=== PATIENT | female | born 2000 | race Caucasian/White ===

== ENCOUNTER → 2018-03-21 | Outpatient (CLI) | payer BC, OTHER ==
--- NOTE | 2018-03-21 16:55 | RAD ---
Obstetrical ultrasound, 03/21/2018: HISTORY: check There is a single intrauterine fetus in a breech orientation. The biparietal diameter measures 4.5 cm compatible with a gestational age of 19-20 weeks. This corresponds well to the other measurements yielding an average gestational age of 19 weeks and 6 days and a sonographic EDC of 08/09/2017. Normal activity and heart motion were seen. The heart rate is 136 bpm. A four-chamber heart is evident. Fluid is evident in the bladder and stomach. The visualized portions of the kidneys and spine are unremarkable. A three-vessel umbilical cord is evident with a normal cord insertion site. The placenta lies posteriorly extending into the fundal region. A normal amount of amniotic fluid is evident. The GARY was calculated at 13.5. The cervical length was estimated at 4.5 cm. The maternal ovaries were not visualized. IMPRESSION: Single viable intrauterine fetus of approximately 20 weeks gestational age as described above. Electronically signed by: Mario Samuel MD (03/21/2018 4:52 PM) [facility]
== END | disposition home or self-care (01) ==
LOC: US 11:06
PROVIDERS: ATTEND Obstetrics & Gynecology
DX: O26.842 Uterine size-date discrepancy, second trimester (principal); Z3A.20 20 weeks gestation of pregnancy
CPT/HCPCS: 76805

== ENCOUNTER 2018-08-14 19:01 | Inpatient (IN) | payer BC, OTHER ==
[~2018-08-14] VITALS: Ht 165.1 cm; Wt 79.8 kg
[2018-08-14] MEDS ORDERED: CITRIC ACID/SODIUM CITRATE 30 ML SOLUTION. PO PRN (19:30)
[2018-08-14] MEDS ORDERED: fentaNYL PF VIAL 100 MCG/2 ML VIAL IV PRN ×2 (19:30)
[2018-08-14] MEDS ORDERED: 0.9 % SODIUM CHLORIDE 10 ML DISP.SYRIN. IV PRN (19:30)
[2018-08-14] MEDS ORDERED: DINOPROSTONE 10 MG SUPP.VAG VG ONE (19:30)
[2018-08-14] MEDS ORDERED: TERBUTALINE 1 MG/ML VIAL. SQ PRN (19:30)
[2018-08-14] MEDS ORDERED: OXYTOCIN 30 UNIT/500 ML PREMIX 500 ML IV PRN (19:30)
[2018-08-14] MEDS ORDERED: LIDOCAINE 1% PF 30 ML VIAL. INJ PRN (19:30)
[2018-08-14] MEDS ORDERED: ACETAMINOPHEN 325 MG TABLET. PO PRN (19:30)
[2018-08-14 19:32] VITALS: BP 132/83
[2018-08-14 19:59] LABS: BILIRUBIN,URINE NEGATIVE (NEG); CLARITY,URINE CLEAR; COLOR,URINE YELLOW; NITRITE,URINE NEGATIVE (NEG); PROTEIN,URINE NEGATIVE (NEG-TRACE)
[2018-08-14] MEDS: IV RINGERS,LACTATED 1000ML 1,000 ML IV SCH ×2 (20:04→20:38)
[2018-08-14 20:07] LABS: RBC,URINE 0 /HPF (0-2); SQUAMOUS EPITHELIAL CELL,UR MOD /LPF
[2018-08-14 20:08] LABS: BACTERIA,URINE FEW /HPF (0-FEW)
[2018-08-14 20:08] LABS: BASO % 0 % (0-3); EOS # 0.1 x10^3/uL (0.0-0.7); EOS % 1 % (0-3); HEMATOCRIT 33.5 % (36.0-47.0); HEMOGLOBIN 10.8 g/dL (12.0-15.5); LYMPH # 1.3 x10^3/uL (1.0-4.8); LYMPH % 14 % (24-48); MEAN CORPUSCULAR HEMOGLOBIN 26 pg (25-35); MEAN CORPUSCULAR HGB CONC 32 g/dL (31-37); MEAN CORPUSCULAR VOLUME 82 fL (79-100); MONO # 0.9 x10^3/uL (0.0-1.1); MONO % 9 % (0-9); NEUT # 7.1 x10^3uL (1.8-7.7); NEUT % 76 % (31-73); PLATELET COUNT 258 x10^3/uL (140-400); RED BLOOD COUNT 4.11 x10^6/uL (3.50-5.40); RED CELL DISTRIBUTION WIDTH 14.9 % (11.5-14.5); WHITE BLOOD COUNT 9.4 x10^3/uL (4.0-11.0)
[2018-08-15] MEDS: IV RINGERS,LACTATED 1000ML 1,000 ML IV SCH ×2 (08:26→16:02)
[2018-08-15] MEDS: OXYTOCIN 30 UNIT/500 ML PREMIX 500 ML IV PRN (08:44)
[2018-08-15] MEDS ORDERED: PNV1TABL25 PO (08:44)
--- NOTE | 2018-08-15 08:49 | RAD ---
EXAM: Obstetrics sonogram. HISTORY: Unknown presenting part. TECHNIQUE: Sonographic imaging of a gravid uterus was performed. COMPARISON: None. FINDINGS: There is a single intrauterine fetus in cephalic presentation with a heart rate of 130 bpm. There is normal body motion. The amniotic fluid volume is normal at 14.0 cm. There is a grade 2 left lateral placenta without evidence of placenta previa. The biparietal diameter is 9.48 cm, corresponding with 38 weeks and 5 days. The head circumference is 33.9 cm, corresponding with 39 weeks and 0 days. The abdominal circumference is 36.60 cm, corresponding with 40 weeks and 4 days. The femoral length is 7.73 cm, corresponding with 39 weeks and 4 days. The estimated gestational age patient combined ultrasound measurements is 39 weeks and 3 days and the estimated due date is 08/19/2018. The estimated weight is 3917 g. IMPRESSION: Single intrauterine fetus in cephalic presentation with a heart rate of 130 bpm and gestational age based on ultrasound measurements of 39 weeks and 3 days. Electronically signed by: Verónica Park MD (08/15/2018 8:46 AM) [id number]
--- NOTE | 2018-08-15 17:11 | PDOC1 ---
OB - History Hx of Present Care: Good Care Ultrasounds: Normal mid trimester US Obstetrical Complications: None Medical Complications: Other (depression) Past Family/Social History * Past Medical, Surgical, Family and Obstetric Histories reviewed from chart. Rubella: Immune RPR/VDRL: Negative GBS Status: Negative HBsAG: Negative OB - Chief Complaint & HPI Date of Admission: Date of Admission: Aug 14, 2018 at 19:01 Chief Complaint/History : 1 Para: 0 EGA: 40 Reason for admission: induction of labor Indication for induction: post dates Admission Nurse Assessment Rev: Yes OB - Admission Exam Physical Exam Vitals: VS - Last 72 Hours, by Label Date Time Temp Pulse Resp B/P (MAP) Pulse Ox O2 Delivery O2 Flow Rate FiO2 08/14/18 19:32 98.7 100 20 132/83 (99) Room Air 98.7 HEENT: Normal Heart: Regular Rate Lungs: Clear Abdomen: Gravid, Non tender, Soft Extremities: Edema Reflexes: Normal Cervical Dilatation: Fingertip Effacement: 25% Station: -3 Membranes: Intact Heart Rate: Normal Accelerations: Accelerations Present Decelerations: No decelerations Contractions on Admission: None Text A: 40 wks IUP IOL P: Admit for cervidil, then pitocin in am. TAWANDA BLUM Jr, MD Aug 15, 2018 17:11
[2018-08-15] MEDS ORDERED: L&D EPIDURAL SYRINGE 50 ML ONE (19:08)
[2018-08-15] MEDS ORDERED: ROPIVacaine 0.2% PF 10 ML VIAL. ONE ×2 (19:08→19:15)
[2018-08-15] MEDS ORDERED: L&D EPIDURAL 50 ML SYRINGE. ONE (19:15)
[2018-08-15] MEDS ORDERED: IV RINGERS,LACTATED 1000ML 1,000 ML IV SCH (19:47)
[2018-08-15] MEDS ORDERED: fentaNYL PF VIAL 100 MCG/2 ML VIAL EPI PRN (20:00)
[2018-08-15] MEDS ORDERED: ROPIVacaine 0.2% IN 0.9%NACL PF 40 MG/20 ML DISP.SYRIN. EPID PRN (20:00)
[2018-08-15] MEDS ORDERED: ONDANSETRON PF 4 MG/2 ML VIAL. IV PRN (20:00)
[2018-08-15] MEDS ORDERED: NALOXONE 0.4 MG/ML VIAL. IV PRN (20:00)
[2018-08-15] MEDS ORDERED: ePHEDrine PF IN SALINE 50 MG/10 ML SYRINGE. IV PRN (20:00)
[2018-08-15] MEDS: L&D EPIDURAL SYRINGE 50 ML EPID PRN (22:45)
[2018-08-16] MEDS: L&D EPIDURAL SYRINGE 50 ML EPID PRN ×6 (02:17→14:39)
[2018-08-16] MEDS: ACETAMINOPHEN 500 MG TABLET PO PRN ×2 (03:44→14:23)
[2018-08-16] MEDS ORDERED: ROPIVacaine 0.2% PF 10 ML VIAL. ONE ×4 (03:45→14:33)
[2018-08-16] MEDS ORDERED: METHYLERGONOVINE MALEATE 0.2 MG/ML VIAL. IM ONE ×3 (07:45→16:12)
[2018-08-16] MEDS ORDERED: CARBOPROST TROMETHAMINE 250 MCG/ML AMPUL IM ONE (07:45)
[2018-08-16] MEDS ORDERED: miSOPROStol 200 MCG TABLET PR ONE (07:45)
[2018-08-16] MEDS: AMPICILLIN SODIUM 2 GM in IV NORMAL SALINE 100ML 100 ML IV SCH ×2 (11:28→22:39)
[2018-08-16] MEDS: NORMAL SALINE IV SCH (12:10)
[2018-08-16] MEDS: GENTAMICIN SULFATE IV SCH (12:10)
[2018-08-16] MEDS: OXYTOCIN 30 UNIT/500 ML PREMIX 500 ML IV PRN (13:21)
[2018-08-16] MEDS ORDERED: CITRIC ACID/SODIUM CITRATE 30 ML SOLUTION. PO ONE (16:00)
[2018-08-16] MEDS ORDERED: LIDOCAINE 2% PF 5 ML VIAL. ONE (16:36)
[2018-08-16] MEDS ORDERED: ONDANSETRON PF 4 MG/2 ML VIAL. ONE (16:36)
[2018-08-16] MEDS ORDERED: OXYTOCIN 10 UNIT/ML VIAL. ONE ×2 (16:36→17:07)
[2018-08-16] MEDS ORDERED: BUPIVACAINE MPF 0.25% 30 ML VIAL. ONE (16:58)
[2018-08-16] MEDS ORDERED: fentaNYL PF VIAL 100 MCG/2 ML VIAL ONE (17:12)
[2018-08-16] MEDS ORDERED: MORPHINE PF 5 MG/10 ML VIAL. ONE (17:12)
[2018-08-16] MEDS ORDERED: PHENYLEPHRINE in 0.9% NACL PF 1 MG/10 ML SYRINGE. IV ONE (17:19)
[2018-08-16] MEDS ORDERED: METOCLOPRAMIDE HCL 10 MG/2 ML VIAL. ONE (17:39)
[2018-08-16] MEDS ORDERED: FAMOTIDINE 20 MG/2 ML VIAL ONE (17:41)
--- NOTE | 2018-08-16 18:03 | PDOC4 ---
OB Operative Note Date: Aug 16, 2018 PRE OP DIAGNOSIS: Other (Failure to descend and Chorioamnionitis) POST OP DIAGNOSIS: Other (Same) OPERATION PERFORMED: Mario [facility] Surgeon Dr. Montalvo Ux Engineer Hui Anesthesia: Regional (Epidural) Blood Loss 700 ml Specimen placenta and infant OB Findings: Position (Vertex), Sex (Female), (8/9), Weight (4000 Gram), Fluid (Meconium) Complications post uterine atony required cytotec 800 mcg and Hemabate Additional Remarks pt. TAWANDA Barnes Jr, MD Aug 16, 2018 18:03
[2018-08-16] MEDS ORDERED: NORMAL SALINE IV SCH (18:15)
[2018-08-16] MEDS ORDERED: IBUPROFEN 400 MG TABLET. PO PRN (18:15)
[2018-08-16] MEDS ORDERED: ONDANSETRON PF 4 MG/2 ML VIAL. IV PRN (18:15)
[2018-08-16] MEDS ORDERED: diphenhydrAMINE ORAL ELIXIR 12.5 MG/5 ML ML PO PRN (18:15)
[2018-08-16] MEDS ORDERED: GENTAMICIN SULFATE IV SCH (18:15)
[2018-08-16] MEDS ORDERED: MAG HYDROX/ALUMINUM HYD/SIMETH 30 ML ORAL.SUSP PO PRN (18:15)
[2018-08-16] MEDS ORDERED: 0.9 % SODIUM CHLORIDE 10 ML DISP.SYRIN. IV PRN (18:15)
[2018-08-16] MEDS ORDERED: ZOLPIDEM 5 MG TABLET. PO PRN (18:15)
[2018-08-16] MEDS ORDERED: OXYTOCIN 30 UNIT/500 ML PREMIX 500 ML IV PRN (18:15)
--- NOTE | 2018-08-16 18:27 | OP ---
DATE OF SURGERY: 08/16/2018 PREOPERATIVE DIAGNOSES: 1. 40 weeks' intrauterine . 2. Induction of labor secondary to maternal discomforts of and postdates. 3. Failure to descend. 4. Chorioamnionitis. POSTOPERATIVE DIAGNOSES: 1. 40 weeks' intrauterine . 2. Induction of labor secondary to maternal discomforts of and postdates. 3. Failure to descend. 4. Chorioamnionitis. PROCEDURE: Primary low transverse section. SURGEON: Tawanda Montalvo MD FISH STRINGER ASSEMBLER: Hui. ANESTHESIA: Epidural. ESTIMATED BLOOD LOSS: 700 mL COMPLICATIONS: None. FINDINGS: Viable female infant, Apgars 8 and 9, weight 4000 g. Three-vessel cord placenta delivered manually, intact. Some complications, uterine atony requiring Cytotec and Hemabate. SUMMARY: A 17-year-old 1 at 40 weeks presented for induction of labor. The patient was provided Cervidil overnight. The following day, Pitocin management. The patient continued with a labor pattern where she was completely dilated. The patient pushed for 3 hours and failure to descend was the diagnosis. The patient was also diagnosed with chorioamnionitis where she was provided antibiotics of ampicillin and gentamicin. The patient was counseled on risks, benefits and expectations of and voiced clear understanding to proceed. DESCRIPTION OF PROCEDURE: The patient was taken to surgery suite and placed in dorsal supine position. She was prepped with ChloraPrep and draped in sterile fashion. After adequate anesthesia, a Pfannenstiel skin incision was made with scalpel down to and through the fascia. Fascia was extended laterally using curved Landry scissors. The superior edge of the fascia was grasped with 2 Brandy clamps and dissected free of the abdominal rectus muscles using blunt dissection along with Bovie cautery. The same process took place inferiorly. The abdominal rectus muscles were dissected bluntly at the midline. Peritoneum was grasped with 2 hemostats and entered sharply with Metzenbaum scissors. This incision was extended superiorly as well as inferiorly. The Eliot ring retractor was placed. A low transverse hysterotomy incision made with the scalpel down to the . Hysterotomy incision was extended laterally and superiorly digitally. With the aid of fundal pressure, the 's head was delivered in a smooth atraumatic manner. With additional fundal pressure, the anterior shoulder was delivered followed by posterior shoulder and rest of female infant was delivered. was suctioned with a bulb syringe orally and nasally, umbilical cord was clamped twice and cut. A viable female was handed to waiting nursing staff. Umbilical cord blood as well as arterial pH was then obtained. Three-vessel cord placenta was delivered manually intact. The uterus was then exteriorized and cleared of clot and debris with a moist lap. The hysterotomy incision was reapproximated using 1-0 Vicryl suture in running locked fashion. An 800 mcg of Cytotec was placed intrauterinely prior to closure of the hysterotomy incision. The patient was also provided Hemabate IM due to uterine atony. Once the uterus palpated firm, fallopian tubes, ovaries appeared normal bilaterally. Posterior cul-de-sac was cleared of clot and debris with a moist lap. The uterus was then returned to the abdomen. The pericolic gutters were cleared of clot and debris with moist lap. Hysterotomy incision was reviewed and was hemostatic. Interceed was placed over the hysterotomy incision in an inverted T fashion. The Eliot ring retractor was removed. The peritoneum was reapproximated using #1 Vicryl suture in running fashion. The muscles were reapproximated using #1 Vicryl suture in an interrupted fashion. The fascia was reapproximated using 0 Vicryl suture in running fashion. Skin was reapproximated using 4-0 Vicryl suture in subcuticular manner. The patient tolerated the procedure well and was taken to recovery room in stable condition. Sponge and needle count correct x 3. TAWANDA MONTALVO MD DR: SOPHIA/tyson JOB#: [id number] / [id number]
[2018-08-16] MEDS: KETOROLAC 30 MG/ML VIAL. IV PRN (19:26)
[2018-08-16] MEDS ORDERED: miSOPROStol 200 MCG TABLET ONE (19:33)
[2018-08-16 21:15] VITALS: BP 130/85
[2018-08-16 22:30] VITALS: BP 107/70
[2018-08-17] MEDS ORDERED: AMPICILLIN SODIUM 2 GM in IV NORMAL SALINE 100ML 100 ML IV SCH ×2
[2018-08-17] MEDS: KETOROLAC 30 MG/ML VIAL. IV PRN (01:23)
[2018-08-17] MEDS: oxyCODONE/APAP 5/325 1 TAB TABLET PO PRN ×6 (05:00→21:33)
[2018-08-17] MEDS: AMPICILLIN SODIUM 2 GM in IV NORMAL SALINE 100ML 100 ML IV SCH ×3 (05:00→17:34)
[2018-08-17] MEDS: IV RINGERS,LACTATED 1000ML 1,000 ML IV SCH ×2 (05:00→18:45)
[2018-08-17 05:05] LABS: BASO % 0 % (0-3); EOS % 0 % (0-3); HEMATOCRIT 23.4 % (36.0-47.0); HEMOGLOBIN 7.5 g/dL (12.0-15.5); LYMPH # 1.3 x10^3/uL (1.0-4.8); LYMPH % 6 % (24-48); MEAN CORPUSCULAR HEMOGLOBIN 26 pg (25-35); MEAN CORPUSCULAR HGB CONC 32 g/dL (31-37); MEAN CORPUSCULAR VOLUME 82 fL (79-100); MONO # 1.6 x10^3/uL (0.0-1.1); MONO % 7 % (0-9); NEUT # 18.2 x10^3uL (1.8-7.7); NEUT % 86 % (31-73); PLATELET COUNT 196 x10^3/uL (140-400); RED BLOOD COUNT 2.87 x10^6/uL (3.50-5.40); WHITE BLOOD COUNT 21.1 x10^3/uL (4.0-11.0)
[2018-08-17 05:06] VITALS: BP 116/56
[2018-08-17 07:30] LABS: % BANDS 15 % (0-9); % LYMPHS 6 % (24-48); % MONOS 5 % (0-10); % SEGS 74 % (35-66); PLT ESTIMATE ADEQUATE (ADEQUATE)
[2018-08-17 07:31] LABS: ANISOCYTOSIS SLIGHT
[2018-08-17 07:32] LABS: TEAR DROP CELLS OCC
[2018-08-17] MEDS: IBUPROFEN 400 MG TABLET. PO PRN ×2 (08:23→15:26)
--- NOTE | 2018-08-17 08:45 | NUR ---
Dr. Montalvo notified of Pt.'s positive sepsis screen status, states to continue POC, repeat CBC in AM, notify him if Pt. has a fever. Narcisa Pierson RN
--- NOTE | 2018-08-17 08:53 | PDOC ---
OB Progress Note Date of Service 08/17/18 Time of Evaluation 0845 Notes Pt. feeling well. Pain controlled. Pt. attempting breast feeding. No fevers overnight. Lab Laboratory Tests Test 08/17/18 04:00 White Blood Count 21.1 x10^3/uL (4.0-11.0) Red Blood Count 2.87 x10^6/uL (3.50-5.40) Hemoglobin 7.5 g/dL (12.0-15.5) Hematocrit 23.4 % (36.0-47.0) Mean Corpuscular Volume 82 fL (79-100) Mean Corpuscular Hemoglobin 26 pg (25-35) Mean Corpuscular Hemoglobin Concent 32 g/dL (31-37) Red Cell Distribution Width 15.0 % (11.5-14.5) Platelet Count 196 x10^3/uL (140-400) Neutrophils (%) (Auto) 86 % (31-73) Lymphocytes (%) (Auto) 6 % (24-48) Monocytes (%) (Auto) 7 % (0-9) Eosinophils (%) (Auto) 0 % (0-3) Basophils (%) (Auto) 0 % (0-3) Neutrophils # (Auto) 18.2 x10^3uL (1.8-7.7) Lymphocytes # (Auto) 1.3 x10^3/uL (1.0-4.8) Monocytes # (Auto) 1.6 x10^3/uL (0.0-1.1) Eosinophils # (Auto) 0.0 x10^3/uL (0.0-0.7) Basophils # (Auto) 0.0 x10^3/uL (0.0-0.2) Segmented Neutrophils % 74 % (35-66) Band Neutrophils % 15 % (0-9) Lymphocytes % 6 % (24-48) Monocytes % 5 % (0-10) Platelet Estimate Adequate (ADEQUATE) Anisocytosis Slight Tear Drop Cells Occ Ovalocytes Laboratory Tests Test 08/17/18 04:00 White Blood Count 21.1 x10^3/uL (4.0-11.0) Red Blood Count 2.87 x10^6/uL (3.50-5.40) Hemoglobin 7.5 g/dL (12.0-15.5) Hematocrit 23.4 % (36.0-47.0) Mean Corpuscular Volume 82 fL (79-100) Mean Corpuscular Hemoglobin 26 pg (25-35) Mean Corpuscular Hemoglobin Concent 32 g/dL (31-37) Red Cell Distribution Width 15.0 % (11.5-14.5) Platelet Count 196 x10^3/uL (140-400) Neutrophils (%) (Auto) 86 % (31-73) Lymphocytes (%) (Auto) 6 % (24-48) Monocytes (%) (Auto) 7 % (0-9) Eosinophils (%) (Auto) 0 % (0-3) Basophils (%) (Auto) 0 % (0-3) Neutrophils # (Auto) 18.2 x10^3uL (1.8-7.7) Lymphocytes # (Auto) 1.3 x10^3/uL (1.0-4.8) Monocytes # (Auto) 1.6 x10^3/uL (0.0-1.1) Eosinophils # (Auto) 0.0 x10^3/uL (0.0-0.7) Basophils # (Auto) 0.0 x10^3/uL (0.0-0.2) Segmented Neutrophils % 74 % (35-66) Band Neutrophils % 15 % (0-9) Lymphocytes % 6 % (24-48) Monocytes % 5 % (0-10) Platelet Estimate Adequate (ADEQUATE) Anisocytosis Slight Tear Drop Cells Occ Ovalocytes Medications Current Medications Sodium Chloride (Normal Saline Flush) 3 ml QSHIFT PRN IV AFTER MEDS AND BLOOD DRAWS Last administered on 08/15/18at 08:27; Start 08/14/18 at 19:30 Ringer's Solution 1,000 ml @ 125 mls/hr Q8H IV Last administered on 08/17/18at 05:00; Start 08/14/18 at 19:24 Fentanyl Citrate (Fentanyl 2ml Vial) 50 mcg PRN Q30MIN PRN IV Mild to moderate pain; Start 08/14/18 at 19:30 Fentanyl Citrate (Fentanyl 2ml Vial) 100 mcg PRN Q30MIN PRN IV Severe pain Last administered on 08/15/18at 17:30; Start 08/14/18 at 19:30 Acetaminophen (Tylenol) 1,000 mg PRN Q6HRS PRN PO MILD PAIN / TEMP; Start 08/14 at 19:30; Stop 08/14/18 at 20:11; Status DC Citric Acid/ Sodium Citrate (Bicitra) 30 ml 1X PRN PRN PO DYSPEPSIA; Start at 19:30; Stop 08/15/18 at 19:29; Status DC Terbutaline Sulfate (Brethine) 0.25 mg 1X PRN PRN SQ SEE COMMENTS; Start at 19:30; Stop 08/15/18 at 19:29; Status DC Lidocaine HCl (Xylocaine 1% Pf 30ml Vial) 30 ml 1X PRN PRN INJ SEE COMMENTS; Start 08/14/18 at 19:30; Stop 08/16/18 at 19:29; Status DC Oxytocin/Sodium Chloride 500 ml @ 0 mls/hr CONT PRN IV SEE I/O RECORD Last administered on 08/16/18at 13:21; Start 08/14/18 at 19:30 Oxytocin/Sodium Chloride 500 ml @ 0 mls/hr CONT PRN PRN IV Post delivery bleeding; Start 08/14/18 at 19:30 Ibuprofen (Motrin) 800 mg PRN Q6HRS PRN PO PAIN Last administered on 08/17/18at 08:23; Start 08/14/18 at 19:30 Dinoprostone (Cervidil) 10 mg 1X ONCE VG Last administered on 08/14/18at 21:37 ; Start 08/14/18 at 19:30; Stop 08/14/18 at 19:38; Status DC Acetaminophen (Tylenol) 1,000 mg PRN Q6HRS PRN PO MILD PAIN / TEMP Last administered on 08/16/18at 14:23; Start 08/14/18 at 20:11 Ropivacaine (Naropin 0.2%) 10 ml STK-MED ONCE .ROUTE ; Start 08/15/18 at 19:08; Stop 08/15/18 at 19:09; Status DC Ropivacaine/ Fentanyl/NS 50 ml @ As Directed STK-MED ONCE .ROUTE ; Start at 19:08; Stop 08/15/18 at 19:09; Status DC Ringer's Solution 1,000 ml @ 1,000 mls/hr Q1H IV Last administered on at 14:40; Start 08/15/18 at 19:47; Stop 08/15/18 at 20:46; Status DC Ephedrine Sulfate (ePHEDrine PF IN SALINE SYRINGE) 10 mg PRN Q2MIN PRN IV IF SBP<90; Start 08/15/18 at 20:00 Naloxone HCl (Narcan) 0.4 mg PRN Q1MIN PRN IV SEE COMMENTS; Start 08/15/18 at 20 :00 Fentanyl Citrate (Fentanyl 2ml Vial) 100 mcg PRN 1X PRN EPI FOR ANESTHESIA; Start 08/15/18 at 20:00; Stop 08/16/18 at 19:59; Status DC Ropivacaine/ Fentanyl/NS 50 ml @ 14 mls/hr CONT PRN EPID PAIN Last administered on 08/16/18at 14:39; Start 08/15/18 at 20:00; Stop 08/17/18 at 19:46 Ondansetron HCl (Zofran) 4 mg PRN Q6HRS PRN IV NAUSEA/VOMITING Last administered on 08/16/18at 06:43; Start 08/15/18 at 20:00 Ropivacaine/ Sodium Chloride (ROPIVacaine 0.2% - 0.9%NACL PF) 40 mg PRN 1X PRN EPID SEE COMMENTS; Start 08/15/18 at 20:00; Stop 08/16/18 at 19:47; Status DC Ropivacaine (Naropin 0.2%) 10 ml STK-MED ONCE .ROUTE ; Start 08/16/18 at 03:45; Stop 08/16/18 at 03:46; Status DC Methylergonovine Maleate (Methergine) 0.2 mg 1X ONCE IM ; Start 08/16/18 at 07: 45; Stop 08/16/18 at 07:46; Status DC Carboprost Tromethamine (Hemabate) 250 mcg 1X ONCE IM ; Start 08/16/18 at 07:45 ; Stop 08/16/18 at 07:46; Status DC Misoprostol (Cytotec 200mcg Tab) 800 mcg 1X ONCE CO Last administered on at 19:34; Start 08/16/18 at 07:45; Stop 08/16/18 at 07:46; Status DC Ropivacaine (Naropin 0.2%) 10 ml STK-MED ONCE .ROUTE ; Start 08/16/18 at 09:19; Stop 08/16/18 at 09:20; Status DC Ampicillin Sodium 2 gm/Sodium Chloride 100 ml @ 200 mls/hr Q6HRS IV Last administered on 08/17/18at 05:00; Start 08/16/18 at 11:00; Stop 08/17/18 at 19:00 Gentamicin Sulfate 290 mg/ Sodium Chloride 107.25 ml @ 107.25 mls/hr Q24H IV Last administered on 08/16/18at 12:10; Start 08/16/18 at 11:00; Stop 08/17/18 at 19: 00 Ropivacaine (Naropin 0.2%) 30 ml STK-MED ONCE .ROUTE ; Start 08/15/18 at 19:15; Stop 08/16/18 at 11:17; Status DC Ropivacaine/ Fentanyl/NS (Frvxzcmo-Wcnkj-XG 3 Mcg-0.1%) 50 ml STK-MED ONCE .ROUTE ; Start 08/15/18 at 19:15; Stop 08/16/18 at 11:17; Status DC Ropivacaine (Naropin 0.2%) 10 ml STK-MED ONCE .ROUTE ; Start 08/16/18 at 14:33; Stop 08/16/18 at 14:34; Status DC Citric Acid/ Sodium Citrate (Bicitra) 30 ml 1X ONCE PO Last administered on 08/16/18at 16:40; Start 08/16/18 at 16:00; Stop 08/16/18 at 16:01; Status DC Methylergonovine Maleate (Methergine) 0.2 mg STK-MED ONCE IM ; Start 08/16/18 at 16:12; Stop 08/16/18 at 16:13; Status DC Lidocaine HCl (Lidocaine Pf 2% Vial) 5 ml STK-MED ONCE .ROUTE ; Start 08/16/18 at 16:36; Stop 08/16/18 at 16:37; Status DC Ondansetron HCl (Zofran) 4 mg STK-MED ONCE .ROUTE ; Start 08/16/18 at 16:36; Stop 08/16/18 at 16:37; Status DC Oxytocin (Pitocin) 10 unit STK-MED ONCE .ROUTE ; Start 08/16/18 at 16:36; Stop at 16:37; Status DC Bupivacaine HCl (Sensorcaine Mpf 0.25%) 30 ml STK-MED ONCE .ROUTE ; Start at 16:58; Stop 08/16/18 at 16:59; Status DC Oxytocin (Pitocin) 10 unit STK-MED ONCE .ROUTE ; Start 08/16/18 at 17:07; Stop at 17:08; Status DC Morphine Sulfate (Morphine Preservative Free) 5 mg STK-MED ONCE .ROUTE ; Start 08/16/18 at 17:12; Stop 08/16/18 at 17:15; Status DC Fentanyl Citrate (Fentanyl 2ml Vial) 100 mcg STK-MED ONCE .ROUTE ; Start at 17:12; Stop 08/16/18 at 17:15; Status DC Phenylephrine HCl (PHENYLEPHRINE in 0.9% NACL PF) 1 mg STK-MED ONCE IV ; Start 08/16/18 at 17:19; Stop 08/16/18 at 17:20; Status DC Metoclopramide HCl (Reglan Vial) 10 mg STK-MED ONCE .ROUTE ; Start 08/16/18 at 17 :39; Stop 08/16/18 at 17:40; Status DC Famotidine (Pepcid Vial) 20 mg STK-MED ONCE .ROUTE ; Start 08/16/18 at 17:41; Stop 08/16/18 at 17:42; Status DC Sodium Chloride (Normal Saline Flush) 3 ml QSHIFT PRN IV AFTER MEDS AND BLOOD DRAWS; Start 08/16/18 at 18:15; Status UNV Oxytocin/Sodium Chloride 500 ml @ 125 mls/hr CONT PRN IV EXCESSIVE POST- BLEEDING; Start 08/16/18 at 18:15; Stop 08/17/18 at 02:14; Status UNV Ibuprofen (Motrin) 800 mg PRN Q4HRS PRN PO INFLAMMATION; Start 08/16/18 at 18:15 ; Status UNV Ondansetron HCl (Zofran) 4 mg PRN Q6HRS PRN IV NAUSEA/VOMITING; Start 08/16/18 at 18:15 Docusate Sodium (Colace) 100 mg PRN BID PRN PO CONSTIPATION; Start 08/16/18 at 18:15 Al Hydroxide/Mg Hydroxide (Mylanta Plus Xs) 30 ml PRN Q4HRS PRN PO HEARTBURN / GAS; Start 08/16/18 at 18:15 Simethicone (Gas-X) 80 mg PRN AFTMEALHC PRN PO GAS / BLOATING; Start 08/16/18 at 18:15 Diphenhydramine HCl (Benadryl Oral Elixir) 12.5 mg PRN Q6HRS PRN PO ITCHING; Start 08/16/18 at 18:15 Ferrous Sulfate (Feosol) 325 mg BIDWMEALS PO ; Start 08/17/18 at 08:00 Zolpidem Tartrate (Ambien) 5 mg PRN QHS PRN PO INSOMNIA, MAY REPEAT X1; Start 08/16/18 at 18:15 Oxycodone/ Acetaminophen (Percocet 5/325) 2 tab PRN Q4HRS PRN PO MODERATE PAIN , SEVERE PAIN Last administered on 08/17/18at 08:25; Start 08/16/18 at 18:15 Ketorolac Tromethamine (Toradol 30mg Vial) 30 mg PRN Q6HRS PRN IV PAIN Last administered on 08/17/18at 01:23; Start 08/16/18 at 18:15; Stop 08/21/18 at 18:14 Ampicillin Sodium 2 gm/Sodium Chloride 100 ml @ 200 mls/hr Q6HRS IV ; Start 08/17/18 at 00:00; Status UNV Gentamicin Sulfate 290 mg/ Sodium Chloride 107.25 ml @ 107.25 mls/hr Q24H IV ; Start 08/16/18 at 18:15; Status UNV Misoprostol (Cytotec 200mcg Tab) 200 mcg STK-MED ONCE .ROUTE ; Start 08/16/18 at 19:33; Stop 08/16/18 at 19:34; Status DC Ropivacaine (Naropin 0.2%) 20 ml STK-MED ONCE .ROUTE ; Start 08/16/18 at 12:00; Stop 08/17/18 at 08:15; Status DC Methylergonovine Maleate (Methergine) 0.2 mg STK-MED ONCE IM ; Start 08/16/18 at 12:00; Stop 08/17/18 at 08:15; Status DC Active Scripts Active Reported Tablet (Pnv Cmb#95/Ferrous Fumarate/Fa) 1 Each Tablet 1 Tab PO DAILY Exam Abd: soft, moderate tenderness, fundus firm Bandage removed. Incision site: dry and intact Assessment POD#1 s/p c/s Chorioamnionitis Plan of Care: Continue current Tx, Mgmt (Continue IV abx for next 24 hours. Recheck CBC in am. Start iron BID for anemia.) TAWANDA BLUM Jr, MD Aug 17, 2018 08:53
[2018-08-17] MEDS ORDERED: MEASLES, MUMPS & RUBELLA VACC 0.5 ML VIAL. VAX SQ ONE (09:00)
[2018-08-17] MEDS: DOCUSATE SODIUM 100 MG CAPSULE. PO PRN ×2 (09:30→21:33)
[2018-08-17] MEDS: FERROUS SULFATE 325 MG TABLET. PO SCH ×2 (09:30→15:26)
[2018-08-17 11:25] VITALS: BP 110/53
[2018-08-17] MEDS: NORMAL SALINE IV SCH (11:42)
[2018-08-17] MEDS: GENTAMICIN SULFATE IV SCH (11:42)
--- NOTE | 2018-08-17 13:54 | NUR ---
FACULTY CO-SIGN I have reviewed the documentation by student support advisor:Geoffrey Pham
[2018-08-17] MEDS ORDERED: FLUTICASONE 50MCG/NASAL SPRAY 16GM BOTTLE. NS PRN (15:00)
[2018-08-17 15:30] VITALS: BP 116/72
--- NOTE | 2018-08-17 16:25 | NUR ---
SS following up with referral regarding "desires therapy and teen mother, may need other resources." SS contacted PAT team for referral and assessment. Diego from PAT team met with infants mother to assess and provide resources. Infants mother reported that she will be living in [place] with her mother. Diego discussed history of depression with infants mother. Diego provided infants mother with resources for the [facility] and preferred providers through mothers BCBS plan. Diego instructed infants mother to follow up with her PCP in [place] once discharged for continued care and follow up.
[2018-08-17 22:30] VITALS: BP 116/88
[2018-08-18] MEDS: oxyCODONE/APAP 5/325 1 TAB TABLET PO PRN ×5 (01:02→21:21)
[2018-08-18] MEDS: IBUPROFEN 400 MG TABLET. PO PRN ×2 (01:03→10:15)
[2018-08-18 03:55] VITALS: BP 110/66
[2018-08-18] MEDS: AMPICILLIN SODIUM 2 GM in IV NORMAL SALINE 100ML 100 ML IV SCH ×3 (05:50→18:00)
[2018-08-18 06:35] VITALS: BP 123/80
[2018-08-18 07:42] LABS: BASO % 0 % (0-3); EOS # 0.2 x10^3/uL (0.0-0.7); EOS % 1 % (0-3); HEMATOCRIT 22.7 % (36.0-47.0); HEMOGLOBIN 7.2 g/dL (12.0-15.5); LYMPH # 1.4 x10^3/uL (1.0-4.8); LYMPH % 11 % (24-48); MEAN CORPUSCULAR HEMOGLOBIN 26 pg (25-35); MEAN CORPUSCULAR HGB CONC 32 g/dL (31-37); MEAN CORPUSCULAR VOLUME 83 fL (79-100); MONO # 0.9 x10^3/uL (0.0-1.1); MONO % 7 % (0-9); NEUT # 10.6 x10^3uL (1.8-7.7); NEUT % 81 % (31-73); PLATELET COUNT 227 x10^3/uL (140-400); RED BLOOD COUNT 2.74 x10^6/uL (3.50-5.40); RED CELL DISTRIBUTION WIDTH 15.6 % (11.5-14.5); WHITE BLOOD COUNT 13.1 x10^3/uL (4.0-11.0)
[2018-08-18] MEDS: DOCUSATE SODIUM 100 MG CAPSULE. PO PRN ×2 (10:14→17:07)
[2018-08-18] MEDS: SIMETHICONE 80 MG TAB.CHEW PO PRN ×2 (10:14→17:07)
[2018-08-18] MEDS: FERROUS SULFATE 325 MG TABLET. PO SCH ×2 (10:14→17:00)
[2018-08-18] MEDS ORDERED: NORMAL SALINE IV SCH (11:00)
[2018-08-18] MEDS ORDERED: GENTAMICIN SULFATE IV SCH (11:00)
[2018-08-18 11:15] VITALS: BP 113/61
--- NOTE | 2018-08-18 13:10 | PATHOLOGY ---
[facility] Accession Number: [id number] . 01 Material submitted: . PLACENTA WITH CORD . 01 Clinical history: . IUP EDC 08/14/18(08/09/18 per delivery summary) Chorioamnionitis 08/16/18 GA: 40 weeks 8 lbs. 13 oz. Apgars 8, 9 . 02 Diagnosis: 533 gram full term placenta of an estimated 40 weeks gestation with attached membranes and attached and detached segments of umbilical cord: - Acute chorioamnionitis. - Acute vasculitis of chorionic plate. - Acute intervillositis. - Subamnionic pigmented histiocytes. - Retromembranous hematoma. . (JPM:brenton; 08/18/2018) QLM/08/18/2018 . 02 Electronically signed: . Bernardino Nagel MD, Pathologist NPI- [id number] . 01 Gross description: . The specimen is received in formalin, labeled "Zulema Epstein, placenta" and consists of an ovoid dumas placenta measuring 18.9 x 17.4 x 3.0 cm and weighing 533 g after removal of membranes and umbilical cord. The membranes are green-wagner, slimy, and vary from thin and translucent to opaque. There is a retro-membranous hematoma (7.4 x 3.5 cm). The surface is green-blue to carpenter and glistening with 2 fibrin deposits measuring 0.8 and 2.4 cm (less than 5% of the overall surface). The 3 vessel umbilical cord is eccentrically inserted (5.0 cm from edge), and measures 27.5 cm in length and up to 2.2 cm in diameter. A single false knot is present. Received separately is a detached and clamped segment of umbilical cord measuring 19.0 by up to 1.6 cm. Both segments of cord are white-wagner with increased twists. The maternal surface shows complete and intact cotyledons with surface calcifications covering approximately 50% of the surface. Sectioning reveals soft maroon-red cut surfaces with no gross lesions. Tool Sharpener sections are submitted as follows: . A1: Periphery and membrane roll A2: Umbilical cord A3: Retro-membranous hematoma A4-A5: Full-thickness sections (SDY; 08/17/2018) SYU/SYU . 02 Pathologist provided ICD-10: O41.1230, O43.893, Z37.0, Z3A.40 . 02 CPT . 297208 Specimen Comment: A courtesy copy of this report has been sent to Specimen Comment: [phone]. Specimen Comment: Report sent to Performed at: [facility] [address], [place] [id number] MD Trent Hays MD Phone: [phone] Performed at: 02 [facility] [address], [place] [id number] MD Bernardino Nagel MD Phone: [phone]
--- NOTE | 2018-08-18 14:02 | PDOC ---
Provider Note Provider Note Stable afebrile Continue current tx and Abs Incision without signs of infection FU in AM YASHIRA SNYDER MD Aug 18, 2018 14:02
--- NOTE | 2018-08-18 16:18 | NUR ---
SS following up with discharge planning. As previously noted infants mother will be living with maternal grandmother in [place], [place]. [facility] resources provided by Diego from the PAT team. SS met with infants mother and provided resources for [facility] to include the [facility], [place] [facility], and the [facility] through [employer] Infants RN notified.
[2018-08-18 16:20] VITALS: BP 117/79
--- NOTE | 2018-08-18 17:30 | NUR ---
pt mother call with concerns of possible lack of bonding pt has with . Pt affect has improved after sleeping this afternoon and is walking in halls RN notified nursery RN of grandmas concerns. will continue to watch pt and interactions. 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
[2018-08-18 20:00] VITALS: BP 118/85
[2018-08-19] MEDS: oxyCODONE/APAP 5/325 1 TAB TABLET PO PRN ×3 (03:41→14:00)
[2018-08-19 03:57] VITALS: BP 132/100
[2018-08-19] MEDS: FERROUS SULFATE 325 MG TABLET. PO SCH ×2 (08:00→10:54)
[2018-08-19] MEDS ORDERED: IBUPROFEN 400 MG TABLET. PO PRN (08:45)
--- NOTE | 2018-08-19 10:40 | NUR ---
August not given due to Hct being 31.4 Addendum: 08/19/18 at 1043 by SONIA OSWALD RN RN Strike out note- wrong patient
[2018-08-19 11:00] VITALS: BP 128/90
--- NOTE | 2018-08-19 12:32 | PDOC3 ---
OB DISCHARGE SUMMARY DATE OF ADMISSION: 08/15/18 DATE OF DISCHARGE: 08/19/18 REASON FOR ADMISSION: Induction of labor INTRAPARTUM PROCEDURES: : Low Cerv Trans DISCHARGE DIAGNOSIS: Term Delivered (post uterine atony and chorioamnionitis) DISCHARGE INFORMATION: Activity (ad poncho), Diet (regular), Instructions (pelvic rest x 6 wks, no driving x 2 wks, no lifting > 20 lbs. x 4 wks) HOSPITAL COURSE Term gestation delivered via section due to failure to descend and chorioamnionitis. Pt. had uterine atony following delivery. TAWANDA BLUM Jr, MD Aug 19, 2018 12:32
[2018-08-19] MEDS ORDERED: DOCU-109 PO (12:35)
[2018-08-19] MEDS ORDERED: OXYC1TAB15 PO (12:35)
[2018-08-19] MEDS ORDERED: FERR325T72 PO (12:35)
[2018-08-19] MEDS ORDERED: IBUP-1027 PO (12:35)
[2018-08-19] MEDS ORDERED: VENL150C PO (12:35)
--- NOTE | 2018-08-19 12:35 | DISCH ---
DISCHARGE INSTRUCTIONS Condition on Discharge Condition on Discharge: Stable Activity After Discharge Activity Instructions for Disc: Activity as tolerated Lifting Instructions after Dis: No heavy lifting Driving Instructions after Dis: No driving for 2 weeks Diet after Discharge Diet after Discharge: Regular Contacting the DRRossy after DC Call your doctor for: Concerns you may have Follow-Up Follow up with: Dr. Montalvo in 2 wks TAWANDA MONTALVO Jr, MD Aug 19, 2018 12:35
[2018-08-19 17:20] VITALS: BP 108/66
--- NOTE | 2018-08-19 17:23 | NUR ---
Patient refusede MMR vaccine. RN educated patient on importance of receiving vaccine due to lab values showing non-immunity to Rubella. Patient stated she will follow up with her mother and PCP before making her decision.
--- NOTE | 2018-08-19 17:29 | NUR ---
Discharge Note: SONIA BENTON R3 SO LND Discharge instructions and discharge home medications reviewed with Patient and a copy given. All questions have been answered and understanding verbalized. The following instructions and handouts were given: Discharge Instructions, F/U instructions, Medications. Patient was instructed to seek medical care in Temp> 100.0 Discontinued lines and drains: PIV Right Hand Removed, Catheter intact. Patient discharged to [facility]
== END 2018-08-19 17:15 | disposition home or self-care (01) | DRG 786 ==
LOC: 3 SO LND 19:01
PROVIDERS: ADMIT Obstetrics & Gynecology; ATTEND Obstetrics & Gynecology
PROC: 10D00Z1 Extraction of Products of Conception, Low, Open Approach (ICD-10-PCS; principal; 2018-08-16)
DX: O62.1 Secondary uterine inertia (principal); O41.1230 Chorioamnionitis, third trimester, not applicable or unspecified; O72.1 Other immediate postpartum hemorrhage; O99.344 Other mental disorders complicating childbirth; Z3A.40 40 weeks gestation of pregnancy; Z37.0 Single live birth; F32.9 Major depressive disorder, single episode, unspecified; O48.0 Post-term pregnancy; D64.9 Anemia, unspecified; O90.81 Anemia of the puerperium
CPT/HCPCS: 36415; 76815; 81001; 85007; 85025; 86592; 86850; 86900; 86901; 88307; C1781; J0290; J1580; J1885; J2001; J2210; J2270; J2370; J2405; J2590; J2765; J2795; J3010; J3490; J7120